=== PATIENT | female | born 1965 | race Caucasian/White ===

== ENCOUNTER → 2018-09-08 15:57 | Outpatient (CLI) | payer OTHER, SELFPAY | PROVIDERS: PCP Student in an Organized Health Care Education/Training Program | DX: Z78.0 Asymptomatic menopausal state (principal) | CPT/HCPCS: 36415; 83001 ==

== ENCOUNTER 2018-11-10 07:43 | Day surgery (SDC) | payer OTHER, SELFPAY ==
[2018-11-07 10:24] VITALS: BMI 24.3
[2018-11-10] VITALS (10 sets, daily range): BP systolic 86–133; BP diastolic 51–84; PULSE 54–102; RESP 7–18; TEMP 36–36.7; O2SAT 96–100; BMI 24.3
--- NOTE | 2018-11-10 | PATH_ITS ---
[facility] Accession Number: [id number] . 01 Material submitted: . ENDOMETRIAL CURRETTINGS . 02 Diagnosis: Endometrial Curettings: Avulsed portions of squamous mucosa with reactive changes; negative for squamous dysplasia and malignancy. Small fragments of endometrial tissue with extensive electrocautery artifact. Please see comment. MRV/11/13/2018 . 02 Comment: No definite glandular hyperplasia, cytologic atypia or malignancy is identified in well preserved endometrial tissue fragments. Extensive tissue preservation artifact is obscuring. . 02 Electronically signed: . Latoya Vann MD, Pathologist NPI- [id number] . 01 Gross description: . Received in formalin, labeled endometrial curettings, are multiple fragments of red-brown tissue (1.5 x 1.1 x 0.2 cm in aggregate. Filtered and entirely submitted in cassette A1. ([id number]) /MRV . 02 Pathologist provided ICD-10: N85.00 . 02 CPT . 811870 Performed at: 01 [facility] [address], [place], [place] [id number] MD Tevin Gleason MD Phone: [phone] Performed at: 02 [facility] [place] [address] [place], [place] [id number] MD Chaya Escobar MD Phone: [phone]
[2018-11-10] MEDS: LACTATED RINGERS 1,000 ML 42 ML IV (08:02)
[2018-11-10] MEDS: MIDAZOLAM 2 MG/2 ML VIAL IV (08:21)
--- NOTE | 2018-11-10 08:24 | SUR.PREOP ---
addendum to pre-op admission; pt. tearful and quite anxious about up coming surgery, states what if they find something really wrong, difficult to calm pt. Notified anesthesia of pt anxiousness/tearfull; received verbal order to administer 2 mg versed.
--- NOTE | 2018-11-10 08:57 | PM.PREOP ---
Pre-operative Note Interval Note History & Physical reviewed/Exam performed by Physician: Yes Changes to H&P: No
--- NOTE | 2018-11-10 09:25 | SUR.OPER ---
Lithotomy on padded OR bed, head on pillow, arms secured on padded arm boards at <90 degrees abduction. Legs secured in padded yellow fins stirrups.
--- NOTE | 2018-11-10 10:06 | PM.OP.1 ---
Operative Date/Time/Diagnoses Date of procedure: 11/10/18 Time of procedure: 10:06 Pre-op diagnosis: Postmenopausal bleeding Post-op diagnosis: same Procedure & Clinicians Procedure: Hysteroscopy D&C Same procedure as scheduled: Yes Indications: Postmenopausal bleeding Surgeon: Melissa Bragg Click Yes if Unassisted: Yes Anesthesia Type: General Operative Notes Findings: No obvious cause for bleeding very thin endometrial lining. Tubal ostia were not well seen. Closure Type: primary Specimen(s): other (Endometrial curettage) Estimated Blood Loss (mL): 10 Blood products transfused: none Procedure in detail: The patient was brought to the operating room where she underwent general anesthesia. She was placed in low stirrups She was prepped and draped in usual sterile fashion with pulsatile stockings in place and functional, warming in place prior to beginning the case. Antibiotics were not indicated. She emptied her bladder prior to coming to the operating room. A single-tooth tenaculum was placed on the anterior lip of the cervix and the uterus dilated to #8 Hegar dilator. During attempt at dilation the single-tooth tenaculum tore through the cervix. A 2nd tenaculum was placed on the posterior lip of the cervix. The hysteroscope was placed into the uterus with a sorbitol solution running and under constant suction. No clear cause for bleeding was seen. A endometrial curettage was performed. The endometrial curettage was sent to pathology. Two 0 chromic suture was used to repair the cervical tear both anterior and posterior cervix. The patient went to recovery room in good condition. Counts of instruments and sponges were correct. The sorbitol solution I=O approximately 600 mL. Condition: stable Disposition: same day surgery Plan for aftercare: Home when awake and stable
[2018-11-10] MEDS: KETOROLAC 30 MG/ML VIAL IV (10:17)
[2018-11-10] MEDS: fentaNYL 100 MCG/2 ML INJ 50 MCG IV ×2 (10:25→10:34)
[2018-11-10] MEDS: ONDANSETRON 4 MG/2 ML INJ IV (10:28)
--- NOTE | 2018-11-10 10:32 | SUR.PHASEI ---
Pt c/o cramping and need to void. Obtained verbal order from Dr. Bragg and Dr. Muñoz for toradol. Pt medicated with toradol and fentanyl. Placed on bedpan, pt able to void small amt of light red urine.
--- NOTE | 2018-11-10 10:45 | SUR.PHASEI ---
Pt sleeping. VS stable.
[2018-11-10] MEDS: OXYCODONE/ACETAMINOPHEN 5/325 TABLET 1 TAB PO (10:53)
[2018-11-10] MEDS: LORazepam 2 MG/ML SYRINGE 0.5 MG IV (10:55)
--- NOTE | 2018-11-10 11:00 | SUR.PHASEI ---
Pt reported nausea resolved. Tolerated crackers. Medicated with percocet. Dr. Muñoz notified pt c/o severe cramping and medications given were reviewed. VVO for Dilaudid and Lorazepam
[2018-11-10] MEDS: HYDROMORPHONE 2 MG INJ 0.5 MG IV (11:14)
== END 2018-11-10 12:04 | disposition home or self-care (01) ==
PROVIDERS: PCP Student in an Organized Health Care Education/Training Program; Visit Provider Specialist
PROC: 0UDB8ZZ Extraction of Endometrium, Via Natural or Artificial Opening Endoscopic (ICD-10-PCS; CPT 58558; principal; 2018-11-10 09:15)
DX: N85.00 Endometrial hyperplasia, unspecified (principal); F41.9 Anxiety disorder, unspecified
CPT/HCPCS: 58558; J1100; J1170; J1885; J2060; J2250; J2405; J2704; J3010